=== PATIENT | female | born 1960 ===

== ENCOUNTER 2018-06-24 13:00 | Outpatient (CLI) | payer OTHER | END 2018-06-24 13:01 | disposition home or self-care (01) | LOC: C.MAMMO 13:01 ==

== ENCOUNTER 2018-07-15 16:49 | Emergency (ER) | payer OTHER ==
[2018-07-15 16:58] VITALS: BMI 32.1
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
[2018-07-15 17:17] VITALS: RESP 18; O2SAT 98
--- NOTE | 2018-07-15 17:51 | RAD ---
Date of service: 07/15/2018 PROCEDURE: Cervical Spine Radiographs. 3 views. HISTORY: Pain. COMPARISON: None available. FINDINGS: Cervical spine not adequately visualized beyond C6 on lateral view. BONES: Straightening of the normal cervical lordosis may be related to muscle spasm or positioning. Alignment otherwise maintained. No acute displaced fracture identified. The dens tip obscured. DISC SPACES: Unremarkable. SOFT TISSUES: Unremarkable. No prevertebral soft tissue swelling. OTHER FINDINGS: None. IMPRESSION: The cervical spine is not adequately visualized beyond C6 on lateral view. No acute displaced fracture identified. Straightening of the normal cervical lordosis may be related to muscle spasm or positioning.
[2018-07-15 18:27] VITALS: BP 142/91; PULSE 67; TEMP 97.9
== END 2018-07-15 18:05 | disposition home or self-care (01) ==
LOC: MERGE 16:49 → C.ER 16:49
DX: S13.4XXA Sprain of ligaments of cervical spine, initial encounter (principal); V59.49XA Driver of pick-up truck or van injured in collision with other motor vehicles in traffic accident, initial encounter; Y92.410 Unspecified street and highway as the place of occurrence of the external cause; Y99.8 Other external cause status